=== PATIENT | female | born 1955 ===

== ENCOUNTER 2022-04-11 11:45 | Inpatient (IN) | payer OTHER ==
[~2022-04-11] VITALS: Ht 160 cm; Wt 86.2 kg
[2022-04-11] MEDS ORDERED: LIPITOR20 MG PO (14:58)
[2022-04-11] MEDS ORDERED: GABAPENTIN100 MG (14:58)
[2022-04-11] MEDS ORDERED: BISOPROLOL FUMAR5 MG PO (14:58)
[2022-04-11] MEDS ORDERED: GLIPIZIDE XL5 MG PO (14:58)
[2022-04-11] MEDS ORDERED: METFORMIN HCL500 M3 PO (14:59)
[2022-04-12] MEDS ORDERED: MAXIMUM D3325 MCG (11:51)
== END 2022-04-14 11:00 | disposition home or self-care (01) | DRG 735 ==
LOC: OB/GYN 04-12 05:57 → O/R 04-12 05:57 → EDBD 04-12 11:45 → SURH 04-12 11:45 → OB/GYN 04-12 15:50
PROVIDERS: ADMIT Obstetrics & Gynecology Gynecologic Oncology; ATTEND Obstetrics & Gynecology Gynecologic Oncology
PROC: 07TC0ZZ Resection of Pelvis Lymphatic, Open Approach (ICD-10-PCS; 2022-04-12)
PROC: 0UT90ZZ Resection of Uterus, Open Approach (ICD-10-PCS; 2022-04-12)
PROC: 0UT70ZZ Resection of Bilateral Fallopian Tubes, Open Approach (ICD-10-PCS; 2022-04-12)
PROC: 0UT20ZZ Resection of Bilateral Ovaries, Open Approach (ICD-10-PCS; 2022-04-12)
PROC: 07TD0ZZ Resection of Aortic Lymphatic, Open Approach (ICD-10-PCS; principal; 2022-04-12 11:15)
DX: D25.1 Intramural leiomyoma of uterus (principal); D25.0 Submucous leiomyoma of uterus; D25.2 Subserosal leiomyoma of uterus; N72 Inflammatory disease of cervix uteri; Z20.822 Contact with and (suspected) exposure to COVID-19